=== PATIENT | male | born 1980 | race Caucasian/White ===

== ENCOUNTER 2018-01-13 09:43 | Inpatient (IN) | payer MEDICAID ==
[~2018-01-13] VITALS: Ht 185.4 cm; Wt 96.9 kg
[2018-01-13 10:25] LABS: Basophils # (auto) 0.1 uL; Basophils % (auto) 0.7 % (0.0-2.0); Eosinophils # (auto) 0.1 uL; Eosinophils % (auto) 0.4 % (0.0-7.0); Neutrophils # (auto) 14.4 uL; Red Cell Distribution Width 13.6 % (11.8-14.3); White Blood Cell 18.3 10^3/uL (4.4-10.8)
[2018-01-13 10:27] LABS: Hematocrit 50.4 % (41.0-53.0); Hemoglobin 18.4 g/dL (13.5-17.5); Lymphocytes # (auto) 2.1 uL; Lymphocytes % (auto) 11.6 % (10.0-50.0); Mean Corpuscular Hemoglobin 33.3 pg (28.0-32.0); Mean Corpuscular Hgb Conc. 36.5 g/dL (32.0-36.0); Mean Corpuscular Volume 91.3 fL (80.0-100.0); Monocytes # (auto) 1.6 uL; Monocytes % (auto) 8.8 % (0.0-12.0); Neutrophils % (auto) 78.5 % (37.0-80.0); Nucleated Red Blood Cells % 0.9 %; Red Blood Cells 5.52 10^6/uL (4.5-5.90)
[2018-01-13 10:42] LABS: Platelet Count (auto) 199 10^3/uL (140-450)
[2018-01-13] MEDS ORDERED: SODIUM CHLORIDE 0.9% 1,000 ML IV ONE ×2 (11:07)
[2018-01-13] MEDS ORDERED: LORazepam 2MG/ML-1ML VIAL IV ONE (11:15)
[2018-01-13 12:28] LABS: Alkaline Phosphatase 128 U/L (45-117); Anion Gap 5 (5-15); Aspartate Aminotransferase 87 U/L (15-37); BUN/Creatinine Ratio 11.3; Blood Urea Nitrogen 11 mg/dL (7-18); Carbon Dioxide 25 mmol/L (21-32); Chloride 103 mmol/L (98-107); GFR African American 111 mL/min; GFR Non-African American 92 mL/min; Glucose 107 mg/dL (74-106); Potassium 4.4 mmol/L (3.5-5.1); Sodium 133 mmol/L (136-145)
[2018-01-13 12:29] LABS: Albumin 3.9 g/dL (3.4-5.0); Bilirubin, Total 0.9 mg/dL (0.2-1.0); Calcium 8.5 mg/dL (8.5-10.1); Magnesium 2.1 mg/dL (1.6-2.6); Total Protein 8.2 g/dL (6.4-8.2)
[2018-01-13 12:30] LABS: Alanine Aminotransferase 155 U/L (16-61)
[2018-01-13] MEDS ORDERED: PIPERACILLIN-TAZOB 3.375GM 100 ML IV ONE (12:45)
[2018-01-13] MEDS ORDERED: MORPHINE SULF INJ 2 MG/ML SYRINGE 1ML IV PRN (13:00)
[2018-01-13] MEDS ORDERED: LORazepam 2MG/ML-1ML VIAL IV PRN (13:00)
[2018-01-13] MEDS ORDERED: PANTOPRAZOLE 40 MG/10 ML VIAL IV ONE (13:00)
[2018-01-13] MEDS ORDERED: PROMETHAZINE HCL 25 MG/ML 1ML IV PRN (13:00)
[2018-01-13] MEDS ORDERED: NITROGLYCERIN 0.4 MG SL TAB SL PRN (13:00)
[2018-01-13] MEDS ORDERED: ONDANSETRON HCL 4 MG/2 ML VIAL ONE (13:04)
[2018-01-13] MEDS: SODIUM CHLORIDE 0.9% 1,000 ML IV SCH ×2 (13:05→17:47)
[2018-01-13] MEDS: cefTRIAXone 1GM/10ml IVPUSH 10 ML IV SCH (13:25)
[2018-01-13] MEDS: ONDANSETRON HCL 4 MG/2 ML VIAL IV PRN ×2 (13:25→17:47)
[2018-01-13] MEDS: MORPHINE SULF INJ 2 MG/ML SYRINGE 1ML IV PRN ×3 (13:25→20:26)
[2018-01-13 14:14] LABS: Alcohol, Urine < 3.0 mg/dL (0-5); Amphetamine Screen, Urine POSITIVE (NEGATIVE); Barbiturate Scree,Urine NEGATIVE (NEGATIVE); Benzodiazephine Screen, Urine NEGATIVE (NEGATIVE); Cocaine Screen, Urine NEGATIVE (NEGATIVE); Opiate Scree,Urine NEGATIVE (NEGATIVE); Phencyclidine Screen, Urine NEGATIVE (NEGATIVE)
[2018-01-13] MEDS: MORPHINE SULFATE 4 MG/ML SYR/VIAL IV PRN ×2 (14:18→17:47)
[2018-01-13 14:27] LABS: Cannabinoid Screen, Urine POSITIVE (NEGATIVE)
[2018-01-13 17:01] LABS: Amylase 269 U/L (25-115); Lipase 9253 U/L (73-393)
[2018-01-13 18:37] VITALS: BP 145/92
[2018-01-13 21:38] VITALS: BP 128/67
[2018-01-13] MEDS: metroNIDAZOLE 500MG/100ML 100 ML IV SCH (21:49)
[2018-01-14] MEDS: MORPHINE SULF INJ 2 MG/ML SYRINGE 1ML IV PRN ×2 (00:42→09:28)
[2018-01-14] MEDS: SODIUM CHLORIDE 0.9% 1,000 ML IV SCH ×2 (02:00→09:29)
[2018-01-14 05:00] VITALS: BP 117/68
[2018-01-14] MEDS: metroNIDAZOLE 500MG/100ML 100 ML IV SCH (06:57)
[2018-01-14 08:20] LABS: Basophils # (auto) 0.1 uL; Basophils % (auto) 0.7 % (0.0-2.0); Eosinophils # (auto) 0.1 uL; Eosinophils % (auto) 0.8 % (0.0-7.0); Hemoglobin 16.6 g/dL (13.5-17.5); Lymphocytes # (auto) 1.9 uL; Lymphocytes % (auto) 13.9 % (10.0-50.0); Mean Corpuscular Hemoglobin 32.3 pg (28.0-32.0); Mean Corpuscular Hgb Conc. 35.2 g/dL (32.0-36.0); Mean Corpuscular Volume 91.8 fL (80.0-100.0); Monocytes # (auto) 1.4 uL; Monocytes % (auto) 10.8 % (0.0-12.0); Neutrophils # (auto) 9.9 uL; Neutrophils % (auto) 73.8 % (37.0-80.0); Nucleated Red Blood Cells % 0.1 %; Platelet Count (auto) 142 10^3/uL (140-450); Red Blood Cells 5.12 10^6/uL (4.5-5.90); Red Cell Distribution Width 13.7 % (11.8-14.3); White Blood Cell 13.4 10^3/uL (4.4-10.8)
[2018-01-14 08:39] LABS: Alanine Aminotransferase 106 U/L (16-61); Albumin 3.4 g/dL (3.4-5.0); Alkaline Phosphatase 113 U/L (45-117); Amylase 151 U/L (25-115); Anion Gap 2 (5-15); Aspartate Aminotransferase 40 U/L (15-37); BUN/Creatinine Ratio 9.9; Bilirubin, Total 1.2 mg/dL (0.2-1.0); Blood Urea Nitrogen 9 mg/dL (7-18); Calcium 8.2 mg/dL (8.5-10.1); Carbon Dioxide 25 mmol/L (21-32); Chloride 107 mmol/L (98-107); GFR African American 119 mL/min; GFR Non-African American 99 mL/min; Glucose 93 mg/dL (74-106); Lipase 3470 U/L (73-393); Potassium 3.8 mmol/L (3.5-5.1); Sodium 134 mmol/L (136-145); Total Protein 7.5 g/dL (6.4-8.2)
[2018-01-14 09:00] VITALS: BP 128/77
[2018-01-14] MEDS: cefTRIAXone 1GM/10ml IVPUSH 10 ML IV SCH (09:28)
[2018-01-14 09:39] LABS: Cholesterol 217 mg/dL (< 200); HDL Cholesterol 26 mg/dL (40-59); Triglycerides 405 mg/dL (< 150)
[2018-01-14] MEDS ORDERED: PANTOPRAZOLE 40 MG/10 ML VIAL IV SCH (10:00)
[2018-01-14 13:00] VITALS: BP 124/73
== END 2018-01-14 15:08 | disposition home or self-care (01) | DRG 282 ==
LOC: ER 09:43 → TELE 09:44 → TELE-WESTW 17:30
PROVIDERS: ADMIT Internal Medicine; ATTEND Internal Medicine
DX: K85.90 Acute pancreatitis without necrosis or infection, unspecified (principal); R65.10 Systemic inflammatory response syndrome (SIRS) of non-infectious origin without acute organ dysfunction; K76.0 Fatty (change of) liver, not elsewhere classified; E87.1 Hypo-osmolality and hyponatremia; F12.90 Cannabis use, unspecified, uncomplicated; F15.90 Other stimulant use, unspecified, uncomplicated; F17.210 Nicotine dependence, cigarettes, uncomplicated; K76.89 Other specified diseases of liver; R79.89 Other specified abnormal findings of blood chemistry
CPT/HCPCS: 36415; 71046; 74176; 76705; 80053; 80061; 80307; 82150; 82550; 83690; 83735; 83880; 84443; 84484; 85025; 85652; 86141; 87086; 93005; 93306; 94761; 96361; 96374; 96375; C9113; J0696; J2405; J2543; J3490

== ENCOUNTER 2018-01-26 23:48 | Emergency (ER) | payer MEDICAID ==
[~2018-01-26] VITALS: Ht 185.4 cm; Wt 99.8 kg
[2018-01-27 00:08] VITALS: BP 126/74
[2018-01-27 00:33] LABS: Basophils # (auto) 0.1 uL; Basophils % (auto) 0.6 % (0.0-2.0); Eosinophils # (auto) 0.2 uL; Hematocrit 49.8 % (41.0-53.0); Hemoglobin 17.5 g/dL (13.5-17.5); Lymphocytes # (auto) 2.3 uL; Lymphocytes % (auto) 13.8 % (10.0-50.0); Mean Corpuscular Hemoglobin 32.1 pg (28.0-32.0); Mean Corpuscular Hgb Conc. 35.1 g/dL (32.0-36.0); Mean Corpuscular Volume 91.6 fL (80.0-100.0); Monocytes # (auto) 1.4 uL; Monocytes % (auto) 8.1 % (0.0-12.0); Neutrophils % (auto) 76.5 % (37.0-80.0); Platelet Count (auto) 215 10^3/uL (140-450); Red Blood Cells 5.44 10^6/uL (4.5-5.90); Red Cell Distribution Width 13.6 % (11.8-14.3); White Blood Cell 16.9 10^3/uL (4.4-10.8)
[2018-01-27 00:50] LABS: Alanine Aminotransferase 176 U/L (16-61); Albumin 3.7 g/dL (3.4-5.0); Amylase 94 U/L (25-115); Anion Gap 10 (5-15); Aspartate Aminotransferase 67 U/L (15-37); BUN/Creatinine Ratio 13.9; Blood Alcohol < 3.0 mg/dL (0-5); Blood Urea Nitrogen 15 mg/dL (7-18); Calcium 9.1 mg/dL (8.5-10.1); Carbon Dioxide 23 mmol/L (21-32); Chloride 104 mmol/L (98-107); GFR African American 98 mL/min; GFR Non-African American 81 mL/min; Glucose 160 mg/dL (74-106); Magnesium 2.1 mg/dL (1.6-2.6); Potassium 3.6 mmol/L (3.5-5.1); Sodium 137 mmol/L (136-145)
[2018-01-27 00:59] LABS: Alkaline Phosphatase 158 U/L (45-117); Bilirubin, Total 1.2 mg/dL (0.2-1.0); Lipase 2253 U/L (73-393); Total Protein 8.4 g/dL (6.4-8.2)
== END 2018-01-27 04:00 | disposition left against medical advice (07) ==
LOC: ER 23:50
DX: R07.9 Chest pain, unspecified (principal); Z53.21 Procedure and treatment not carried out due to patient leaving prior to being seen by health care provider
CPT/HCPCS: 36415; 71045; 80053; 80320; 82150; 83690; 83735; 84484; 85025; 93005

== ENCOUNTER 2018-08-03 10:33 | Inpatient (IN) | payer MEDICAID ==
[~2018-08-03] VITALS: Ht 185.4 cm; Wt 90.7 kg
[2018-08-03] MEDS ORDERED: SODIUM CHLORIDE 0.9% 1,000 ML IV ONE ×2 (10:46)
[2018-08-03] MEDS ORDERED: IOHEXOL 300 MG/ML 100ML BOTTLE IJ ONE (10:50)
[2018-08-03] MEDS ORDERED: ONDANSETRON HCL 4 MG/2 ML VIAL IV ONE (11:00)
[2018-08-03] MEDS ORDERED: MORPHINE SULFATE 4 MG/ML SYR/VIAL IV ONE ×2 (11:00→16:00)
[2018-08-03 11:18] LABS: Amylase 367 U/L (25-115)
[2018-08-03 11:29] LABS: Lipase 10437 U/L (73-393)
[2018-08-03] MEDS ORDERED: PIPERACILLIN-TAZOB 3.375GM 100 ML IV ONE (12:45)
[2018-08-03 12:57] LABS: Urine Bacteria NONE SEEN /hpf (None Seen); Urine Blood Negative /uL (Negative); Urine Specific Gravity 1.023 (1.001-1.035); Urine WBC 1 /hpf (0 - 3)
[2018-08-03 13:18] LABS: Amphetamine Screen, Urine NEGATIVE (NEGATIVE); Barbiturate Scree,Urine NEGATIVE (NEGATIVE); Benzodiazephine Screen, Urine NEGATIVE (NEGATIVE); Cannabinoid Screen, Urine POSITIVE (NEGATIVE); Cocaine Screen, Urine NEGATIVE (NEGATIVE); Opiate Scree,Urine NEGATIVE (NEGATIVE); Phencyclidine Screen, Urine NEGATIVE (NEGATIVE)
[2018-08-03 16:08] LABS: Eosinophils # (auto) 0 uL; Eosinophils % (auto) 0.1 % (0.0-7.0)
[2018-08-03 16:09] LABS: Basophils # (auto) 1.5 uL; Basophils % (auto) 5.8 % (0.0-2.0); Lymphocytes # (auto) 2.4 uL; Lymphocytes % (auto) 9.3 % (10.0-50.0); Mean Corpuscular Hemoglobin 34.4 pg (28.0-32.0); Mean Corpuscular Hgb Conc. 37.7 g/dL (32.0-36.0); Monocytes # (auto) 1.2 uL; Monocytes % (auto) 4.7 % (0.0-12.0); Neutrophils # (auto) 20.3 uL; Neutrophils % (auto) 80.1 % (37.0-80.0); Nucleated Red Blood Cells % 0.1 %; Platelet Count (auto) 343 10^3/uL (140-450); Red Blood Cells 5.57 10^6/uL (4.5-5.90); Red Cell Distribution Width 13.7 % (11.8-14.3); White Blood Cell 25.3 10^3/uL (4.4-10.8)
[2018-08-03 16:13] LABS: Anion Gap 8.8 (5-15); Blood Urea Nitrogen 13 mg/dL (7-18); Carbon Dioxide 19.2 mmol/L (21-32); Chloride 95 mmol/L (98-107); Glucose 115.2 mg/dL (74-106); Potassium 5.3 mmol/L (3.5-5.1); Sodium 123 mmol/L (136-145)
[2018-08-03 16:14] LABS: Alanine Aminotransferase 73 U/L (16-61); Alkaline Phosphatase 115 U/L (45-117); Aspartate Aminotransferase 156 U/L (15-37); BUN/Creatinine Ratio 13.7; GFR African American 113 mL/min; GFR Non-African American 93 mL/min
[2018-08-03 16:15] LABS: Albumin 4.2 g/dL (3.4-5.0); Bilirubin, Total 0.2 mg/dL (0.2-1.0); Calcium 9.4 mg/dL (8.5-10.1); Total Protein 7.4 g/dL (6.4-8.2)
[2018-08-03] MEDS ORDERED: ALBUTEROL SULF 2.5 MG/0.5ML(0.5%) NEB SOLN NEB STA (16:40)
[2018-08-03] MEDS ORDERED: InsuLIN REG 1unit/0.01ml Soln (100units/ml) IV ONE (16:45)
[2018-08-03] MEDS ORDERED: SODIUM BICARBONATE 8.4% INJ 50ML SYRINGE IV ONE (16:45)
[2018-08-03] MEDS ORDERED: DEXTROSE (50%) 50ML SYRG IV ONE (16:45)
[2018-08-03] MEDS ORDERED: CALCIUM GLUC 4.65meq/50ml D5AE 50 ML IV ONE (16:45)
[2018-08-03 16:46] LABS: Hematocrit 46.6 % (41.0-53.0)
[2018-08-03] MEDS ORDERED: NITROGLYCERIN 0.4 MG SL TAB SL PRN (18:00)
[2018-08-03] MEDS: SODIUM CHLORIDE 0.9% 1,000 ML IV SCH (18:00)
[2018-08-03] MEDS ORDERED: MORPHINE SULF INJ 2 MG/ML SYRINGE 1ML IV PRN (18:00)
[2018-08-03] MEDS: HYDROmorphone HCL 2 MG/ML VL IV PRN ×2 (18:51→22:52)
[2018-08-03 18:52] LABS: Cholesterol 276 mg/dL (< 200)
[2018-08-03 19:02] LABS: HDL Cholesterol 19 mg/dL (40-59); Triglycerides 3177 mg/dL (< 150)
[2018-08-03 21:00] VITALS: BP 137/67
[2018-08-03 21:35] VITALS: BP 131/67
[2018-08-03] MEDS: ONDANSETRON HCL 4 MG/2 ML VIAL IV PRN (23:03)
[2018-08-04] MEDS: SODIUM CHLORIDE 0.9% 1,000 ML IV SCH ×4 (00:40→20:40)
[2018-08-04] MEDS: ONDANSETRON HCL 4 MG/2 ML VIAL IV PRN ×6 (02:56→22:45)
[2018-08-04] MEDS: HYDROmorphone HCL 2 MG/ML VL IV PRN ×6 (02:56→22:45)
[2018-08-04 04:49] VITALS: BP 119/68
[2018-08-04 07:05] LABS: Basophils # (auto) 0 uL; Basophils % (auto) 0.2 % (0.0-2.0); Eosinophils # (auto) 0 uL; Eosinophils % (auto) 0.1 % (0.0-7.0); Hematocrit 49.2 % (41.0-53.0); Hemoglobin 17.4 g/dL (13.5-17.5); Lymphocytes # (auto) 1.9 uL; Lymphocytes % (auto) 8.7 % (10.0-50.0); Mean Corpuscular Hemoglobin 32.3 pg (28.0-32.0); Mean Corpuscular Hgb Conc. 35.5 g/dL (32.0-36.0); Monocytes # (auto) 1.7 uL; Monocytes % (auto) 7.7 % (0.0-12.0); Neutrophils % (auto) 83.3 % (37.0-80.0); Nucleated Red Blood Cells % 0.1 %; Platelet Count (auto) 149 10^3/uL (140-450); Red Cell Distribution Width 13.5 % (11.8-14.3); White Blood Cell 21.6 10^3/uL (4.4-10.8)
[2018-08-04 07:06] LABS: Albumin 3.3 g/dL (3.4-5.0); Calcium 7.5 mg/dL (8.5-10.1); Potassium 3.9 mmol/L (3.5-5.1)
[2018-08-04 07:18] LABS: BUN/Creatinine Ratio 9.4; Bilirubin, Total 1.5 mg/dL (0.2-1.0); Total Protein 6.8 g/dL (6.4-8.2)
[2018-08-04 09:00] VITALS: BP 109/71
[2018-08-04] MEDS: PANTOPRAZOLE 40 MG/10 ML VIAL IV SCH (11:10)
[2018-08-04 12:00] VITALS: BP 128/63
[2018-08-04 17:00] VITALS: BP 113/69
[2018-08-04 22:00] VITALS: BP 108/71
[2018-08-04] MEDS ORDERED: ATORVASTATIN 20 MG TAB PO ONE (22:45)
[2018-08-05] VITALS (7 sets, daily range): BP systolic 105–137; BP diastolic 52–91
[2018-08-05 00:01] LABS: Lipase 1092 U/L (73-393); Triglycerides 342 mg/dL (< 150)
[2018-08-05] MEDS: SODIUM CHLORIDE 0.9% 1,000 ML IV SCH ×4 (00:32→21:58)
[2018-08-05] MEDS: HYDROmorphone HCL 2 MG/ML VL IV PRN ×7 (01:44→21:51)
[2018-08-05 05:57] LABS: Basophils # (auto) 0 uL; Basophils % (auto) 0.2 % (0.0-2.0); Eosinophils # (auto) 0 uL; Eosinophils % (auto) 0.2 % (0.0-7.0); Hematocrit 42.4 % (41.0-53.0); Hemoglobin 14.7 g/dL (13.5-17.5); Lymphocytes # (auto) 1.2 uL; Lymphocytes % (auto) 6.2 % (10.0-50.0); Mean Corpuscular Hgb Conc. 34.7 g/dL (32.0-36.0); Mean Corpuscular Volume 92.4 fL (80.0-100.0); Monocytes # (auto) 1.6 uL; Monocytes % (auto) 8.6 % (0.0-12.0); Neutrophils # (auto) 16.2 uL; Neutrophils % (auto) 84.8 % (37.0-80.0); Platelet Count (auto) 110 10^3/uL (140-450); Red Blood Cells 4.59 10^6/uL (4.5-5.90); Red Cell Distribution Width 13.5 % (11.8-14.3); White Blood Cell 19.1 10^3/uL (4.4-10.8)
[2018-08-05 06:12] LABS: Potassium 3.5 mmol/L (3.5-5.1)
[2018-08-05 06:19] LABS: BUN/Creatinine Ratio 10.3; Calcium 7.7 mg/dL (8.5-10.1)
[2018-08-05] MEDS: ONDANSETRON HCL 4 MG/2 ML VIAL IV PRN ×2 (08:21→15:23)
[2018-08-05] MEDS: PANTOPRAZOLE 40 MG/10 ML VIAL IV SCH (09:28)
[2018-08-05] MEDS: HYDROcodone-ACET 5/325MG TAB PO PRN ×2 (09:28→20:27)
[2018-08-05] MEDS ORDERED: GADOPENTETATE DIMEGLUMINE (10MMOL/20 ML) VIAL IV ONE (13:26)
[2018-08-05] MEDS: ACETAMINOPHEN 325 MG TAB PO PRN ×2 (17:14→23:01)
[2018-08-05] MEDS: ATORVASTATIN 20 MG TAB PO SCH (21:57)
[2018-08-05] MEDS: PIPERACILLIN-TAZOB 3.375GM 100 ML IV SCH (23:35)
[2018-08-06] MEDS: HYDROmorphone HCL 2 MG/ML VL IV PRN ×7 (00:59→21:00)
[2018-08-06 04:47] VITALS: BP 106/61
[2018-08-06 05:47] LABS: Basophils # (auto) 0 uL; Basophils % (auto) 0.2 % (0.0-2.0); Eosinophils # (auto) 0.1 uL; Eosinophils % (auto) 0.8 % (0.0-7.0); Hematocrit 40.1 % (41.0-53.0); Hemoglobin 13.8 g/dL (13.5-17.5); Lymphocytes # (auto) 1.1 uL; Lymphocytes % (auto) 7.1 % (10.0-50.0); Mean Corpuscular Hemoglobin 32.1 pg (28.0-32.0); Mean Corpuscular Hgb Conc. 34.5 g/dL (32.0-36.0); Monocytes # (auto) 1.2 uL; Monocytes % (auto) 8.1 % (0.0-12.0); Neutrophils # (auto) 12.5 uL; Neutrophils % (auto) 83.8 % (37.0-80.0); Platelet Count (auto) 105 10^3/uL (140-450); Red Blood Cells 4.31 10^6/uL (4.5-5.90); Red Cell Distribution Width 13.3 % (11.8-14.3)
[2018-08-06 06:00] LABS: Lipase 529 U/L (73-393)
[2018-08-06] MEDS: SODIUM CHLORIDE 0.9% 1,000 ML IV SCH ×3 (06:00→15:59)
[2018-08-06 06:03] LABS: Triglycerides 533 mg/dL (< 150)
[2018-08-06] MEDS: ONDANSETRON HCL 4 MG/2 ML VIAL IV PRN ×3 (06:31→17:12)
[2018-08-06] MEDS: HYDROcodone-ACET 5/325MG TAB PO PRN ×2 (06:32→14:51)
[2018-08-06] MEDS: PIPERACILLIN-TAZOB 3.375GM 100 ML IV SCH ×3 (06:51→20:13)
[2018-08-06 08:00] VITALS: BP 120/79
[2018-08-06] MEDS: PANTOPRAZOLE 40 MG/10 ML VIAL IV SCH (09:03)
[2018-08-06 09:23] VITALS: BP 120/79
[2018-08-06 12:08] VITALS: BP 124/74
[2018-08-06] MEDS ORDERED: PPN PER PHARMACY 0 ML IV SCH (14:00)
[2018-08-06] MEDS ORDERED: DEXTROSE (50%) 50ML SYRG IV SCH (14:30)
[2018-08-06 14:36] LABS: Albumin 2.7 g/dL (3.4-5.0); Calcium 8.2 mg/dL (8.5-10.1); Magnesium 1.9 mg/dL (1.6-2.6); Potassium 3.3 mmol/L (3.5-5.1)
[2018-08-06 14:41] LABS: BUN/Creatinine Ratio 11.4; Bilirubin, Total 2.1 mg/dL (0.2-1.0); Phosphorus 1.3 mg/dL (2.5-4.90); Pre Albumin 13.6 mg/dL (20.0-40.0); Total Protein 6.4 g/dL (6.4-8.2)
[2018-08-06] MEDS ORDERED: POTASSIUM PHOSP 22MEQ(15MMOLE) in NS 100 ML IV ONE (15:45)
[2018-08-06 17:13] VITALS: BP 109/66
[2018-08-06] MEDS: ACCU-CHEK COMFORT CURVE STRIP VI SCH (17:13)
[2018-08-06] MEDS: InsuLIN REG 1unit/0.01ml Soln (100units/ml) SC SCH (17:18)
[2018-08-06] MEDS ORDERED: AMINO ACID INFUSION IN D10W 1,000 ML IV NR (20:00)
[2018-08-06] MEDS: ACETAMINOPHEN 325 MG TAB PO PRN (20:59)
[2018-08-06] MEDS: ATORVASTATIN 20 MG TAB PO SCH (21:00)
[2018-08-06 22:00] VITALS: BP 135/59
[2018-08-07] MEDS: ONDANSETRON HCL 4 MG/2 ML VIAL IV PRN ×3 (00:04→14:46)
[2018-08-07] MEDS: ACCU-CHEK COMFORT CURVE STRIP VI SCH ×4 (00:07→18:12)
[2018-08-07] MEDS: PIPERACILLIN-TAZOB 3.375GM 100 ML IV SCH ×2 (02:14→20:00)
[2018-08-07] MEDS: SODIUM CHLORIDE 0.9% 1,000 ML IV SCH ×3 (02:21→21:16)
[2018-08-07] MEDS: HYDROcodone-ACET 5/325MG TAB PO PRN ×3 (02:28→15:37)
[2018-08-07] MEDS: HYDROmorphone HCL 2 MG/ML VL IV PRN ×6 (04:44→18:24)
[2018-08-07] MEDS: InsuLIN REG 1unit/0.01ml Soln (100units/ml) SC SCH ×4 (04:52→18:00)
[2018-08-07 05:00] VITALS: BP 121/67
[2018-08-07 05:52] LABS: Basophils # (auto) 0 uL; Basophils % (auto) 0.4 % (0.0-2.0); Eosinophils # (auto) 0.1 uL; Eosinophils % (auto) 1.1 % (0.0-7.0); Hematocrit 38.4 % (41.0-53.0); Hemoglobin 13.3 g/dL (13.5-17.5); Lymphocytes # (auto) 1.2 uL; Lymphocytes % (auto) 9.4 % (10.0-50.0); Mean Corpuscular Hgb Conc. 34.5 g/dL (32.0-36.0); Mean Corpuscular Volume 92.6 fL (80.0-100.0); Monocytes # (auto) 1.3 uL; Neutrophils % (auto) 79.1 % (37.0-80.0); Nucleated Red Blood Cells % 0.1 %; Platelet Count (auto) 127 10^3/uL (140-450); Red Blood Cells 4.15 10^6/uL (4.5-5.90); Red Cell Distribution Width 13.2 % (11.8-14.3); White Blood Cell 12.7 10^3/uL (4.4-10.8)
[2018-08-07 06:26] LABS: Albumin 2.3 g/dL (3.4-5.0); Magnesium 1.8 mg/dL (1.6-2.6)
[2018-08-07 06:32] LABS: BUN/Creatinine Ratio 11.1; Bilirubin, Total 2.9 mg/dL (0.2-1.0); Phosphorus 2.1 mg/dL (2.5-4.90); Total Protein 6.4 g/dL (6.4-8.2)
[2018-08-07 06:34] LABS: Potassium 2.9 mmol/L (3.5-5.1)
[2018-08-07 08:00] VITALS: BP 138/65
[2018-08-07] MEDS ORDERED: PIPERACILLIN-TAZOB 3.375GM 100 ML IV SCH (08:00)
[2018-08-07 09:01] VITALS: BP 138/65
[2018-08-07] MEDS: PANTOPRAZOLE 40 MG/10 ML VIAL IV SCH (09:13)
[2018-08-07] MEDS ORDERED: SODIUM PHOSPHATES 20 MEQ in SODIUM CHL 0.9% 100 ML IV ONE (11:15)
[2018-08-07] MEDS: POTASSIUM CHL 20MEQ/100ML 100 ML IV SCH ×3 (11:32→18:11)
[2018-08-07] MEDS ORDERED: SODIUM CHLORIDE 0.9% 2,000 ML IV ONE (14:15)
[2018-08-07 16:43] VITALS: BP 135/81
[2018-08-07] MEDS ORDERED: VANCOMYCIN PER PHARMACY 0 MG IV SCH (19:45)
[2018-08-07 20:00] VITALS: BP 151/79
[2018-08-07] MEDS ORDERED: PPN PER PHARMACY IV NR ×9 (20:00)
[2018-08-07] MEDS ORDERED: VANCOMYCIN 1GM/250ML 250 ML IV ONE (20:15)
[2018-08-07] MEDS: ATORVASTATIN 20 MG TAB PO SCH (21:15)
[2018-08-07 21:32] LABS: Calcium 8.1 mg/dL (8.5-10.1); Potassium 3.4 mmol/L (3.5-5.1)
[2018-08-07 21:44] VITALS: BP 151/79
[2018-08-07] MEDS ORDERED: VANCOMYCIN 1,500 MG in D5W 5% 250 ML IV ONE (22:45)
[2018-08-08] MEDS: HYDROmorphone HCL 2 MG/ML VL IV PRN ×2 (00:17→18:27)
[2018-08-08] MEDS: ACCU-CHEK COMFORT CURVE STRIP VI SCH ×4 (00:18→17:17)
[2018-08-08] MEDS: PIPERACILLIN-TAZOB 3.375GM 100 ML IV SCH ×3 (03:04→16:04)
[2018-08-08 05:05] VITALS: BP 122/72
[2018-08-08] MEDS: InsuLIN REG 1unit/0.01ml Soln (100units/ml) SC SCH ×4 (06:00→17:17)
[2018-08-08] MEDS: VANCOMYCIN 1GM/250ML 250 ML IV SCH ×2 (06:14→17:17)
[2018-08-08 07:29] LABS: Basophils # (auto) 0 uL; Basophils % (auto) 0.3 % (0.0-2.0); Eosinophils # (auto) 0.2 uL; Eosinophils % (auto) 1.3 % (0.0-7.0); Hematocrit 38.1 % (41.0-53.0); Lymphocytes # (auto) 1.1 uL; Lymphocytes % (auto) 9.1 % (10.0-50.0); Mean Corpuscular Hemoglobin 31.3 pg (28.0-32.0); Mean Corpuscular Hgb Conc. 34.2 g/dL (32.0-36.0); Mean Corpuscular Volume 91.7 fL (80.0-100.0); Monocytes # (auto) 1.3 uL; Monocytes % (auto) 11.2 % (0.0-12.0); Neutrophils # (auto) 9.2 uL; Neutrophils % (auto) 78.1 % (37.0-80.0); Platelet Count (auto) 129 10^3/uL (140-450); Red Blood Cells 4.16 10^6/uL (4.5-5.90); Red Cell Distribution Width 13.2 % (11.8-14.3); White Blood Cell 11.8 10^3/uL (4.4-10.8)
[2018-08-08 07:46] LABS: Albumin 2.2 g/dL (3.4-5.0); BUN/Creatinine Ratio 11.6; Calcium 8.2 mg/dL (8.5-10.1)
[2018-08-08 07:49] LABS: Bilirubin, Total 3.5 mg/dL (0.2-1.0); Total Protein 6.3 g/dL (6.4-8.2)
[2018-08-08 07:53] LABS: Magnesium 2.1 mg/dL (1.6-2.6); Phosphorus 2.7 mg/dL (2.5-4.90)
[2018-08-08 08:00] VITALS: BP 113/59
[2018-08-08] MEDS: HYDROcodone-ACET 5/325MG TAB PO PRN ×3 (08:03→20:58)
[2018-08-08] MEDS: SODIUM CHLORIDE 0.9% 1,000 ML IV SCH ×2 (08:04→17:17)
[2018-08-08 08:12] VITALS: BP 113/59
[2018-08-08] MEDS: PANTOPRAZOLE 40 MG/10 ML VIAL IV SCH (09:14)
[2018-08-08] MEDS: POTASSIUM CHL 20MEQ/100ML 100 ML IV SCH ×3 (12:30→16:41)
[2018-08-08 12:42] VITALS: BP 140/76
[2018-08-08 12:42] LABS: INR 0.92 (0.9-1.15); Prothrombin Time 9.9 sec (9.27-12.13)
[2018-08-08 17:33] VITALS: BP 129/79
[2018-08-08] MEDS: ONDANSETRON HCL 4 MG/2 ML VIAL IV PRN (18:27)
[2018-08-08 18:32] LABS: BUN/Creatinine Ratio 7.5; Calcium 8.5 mg/dL (8.5-10.1); Potassium 3.4 mmol/L (3.5-5.1)
[2018-08-08] MEDS ORDERED: PPN PER PHARMACY IV NR ×9 (20:00)
[2018-08-08] MEDS ORDERED: SODIUM CHLORIDE 0.9% 2,000 ML IV ONE (21:30)
[2018-08-08] MEDS ORDERED: HYDROmorphone HCL 2 MG/ML VL IV PRN (21:30)
[2018-08-08 22:00] VITALS: BP 104/51
[2018-08-08] MEDS ORDERED: LEVOFLOXACIN 500 MG TAB PO SCH (22:00)
[2018-08-08] MEDS: ATORVASTATIN 20 MG TAB PO SCH (22:15)
[2018-08-09] MEDS: ACCU-CHEK COMFORT CURVE STRIP VI SCH ×4 (00:14→17:45)
[2018-08-09] MEDS: SODIUM CHLORIDE 0.9% 1,000 ML IV SCH ×2 (03:45→14:03)
[2018-08-09 05:00] VITALS: BP 122/60
[2018-08-09] MEDS: InsuLIN REG 1unit/0.01ml Soln (100units/ml) SC SCH ×4 (06:33→17:45)
[2018-08-09 07:39] LABS: Albumin 2.4 g/dL (3.4-5.0); Calcium 8.6 mg/dL (8.5-10.1); Magnesium 1.9 mg/dL (1.6-2.6); Potassium 3.2 mmol/L (3.5-5.1)
[2018-08-09 07:45] LABS: BUN/Creatinine Ratio 11.4; Bilirubin, Total 2.7 mg/dL (0.2-1.0); Phosphorus 3.2 mg/dL (2.5-4.90); Total Protein 6.9 g/dL (6.4-8.2)
[2018-08-09] MEDS: ONDANSETRON HCL 4 MG/2 ML VIAL IV PRN ×2 (07:58→14:13)
[2018-08-09] MEDS: HYDROcodone-ACET 5/325MG TAB PO PRN ×2 (07:58→14:13)
[2018-08-09 08:00] VITALS: BP 144/73
[2018-08-09 08:40] VITALS: BP 144/73
[2018-08-09 08:41] LABS: Basophils # (auto) 0 uL; Basophils % (auto) 0.4 % (0.0-2.0); Eosinophils # (auto) 0.2 uL; Eosinophils % (auto) 1.8 % (0.0-7.0); Hematocrit 39.1 % (41.0-53.0); Hemoglobin 13.4 g/dL (13.5-17.5); Lymphocytes # (auto) 1.1 uL; Lymphocytes % (auto) 10.2 % (10.0-50.0); Mean Corpuscular Hemoglobin 31.6 pg (28.0-32.0); Mean Corpuscular Hgb Conc. 34.4 g/dL (32.0-36.0); Mean Corpuscular Volume 91.8 fL (80.0-100.0); Monocytes # (auto) 1.4 uL; Monocytes % (auto) 12.6 % (0.0-12.0); Neutrophils # (auto) 8.3 uL; Nucleated Red Blood Cells % 0.1 %; Platelet Count (auto) 172 10^3/uL (140-450); Red Blood Cells 4.26 10^6/uL (4.5-5.90); Red Cell Distribution Width 13.7 % (11.8-14.3); White Blood Cell 11.1 10^3/uL (4.4-10.8)
[2018-08-09] MEDS: PANTOPRAZOLE 40 MG/10 ML VIAL IV SCH (09:23)
[2018-08-09] MEDS: POTASSIUM CHL 20MEQ/100ML 100 ML IV SCH ×2 (09:23→14:03)
[2018-08-09] MEDS ORDERED: ATOR20TA50 PO (12:48)
[2018-08-09] MEDS ORDERED: LEVO500T21 PO (12:48)
[2018-08-09 13:11] VITALS: BP 152/73
[2018-08-09 16:42] VITALS: BP 123/70
[2018-08-09] MEDS ORDERED: PPN PER PHARMACY IV NR ×8 (20:00)
== END 2018-08-09 18:18 | disposition home health service (06) | DRG 720 ==
LOC: ER 10:38 → TELE 17:48 → TELE-WESTW 20:25
PROVIDERS: ADMIT Nurse Practitioner Acute Care; ATTEND Internal Medicine
DX: A41.2 Sepsis due to unspecified staphylococcus (principal); K85.90 Acute pancreatitis without necrosis or infection, unspecified; E87.5 Hyperkalemia; E87.1 Hypo-osmolality and hyponatremia; E78.1 Pure hyperglyceridemia; F15.90 Other stimulant use, unspecified, uncomplicated; E66.9 Obesity, unspecified; Z68.26 Body mass index [BMI] 26.0-26.9, adult; F19.10 Other psychoactive substance abuse, uncomplicated; F17.210 Nicotine dependence, cigarettes, uncomplicated; M54.9 Dorsalgia, unspecified
CPT/HCPCS: 36415; 71045; 74177; 74181; 74183; 80048; 80053; 80061; 80307; 81001; 82040; 82150; 82962; 83605; 83690; 83735; 84100; 84132; 84478; 85025; 85610; 87040; 87077; 87186; 93005; 94644; 96361; 96365; 96366; 96368; 96375; A6257; C9113; G0378; J0610; J1815; J2405; J2543; J3480; J7060